=== PATIENT | male | born 1995 | race Caucasian/White ===

== ENCOUNTER 2020-09-02 15:22 | Emergency (ER) | payer BC, OTHER ==
[~2020-09-02] VITALS: Ht 188 cm; Wt 116.0 kg
[2020-09-02] MEDS ORDERED: LIDOCAINE 2% VISCOUS 15 ML UDC PO ONE (16:00)
[2020-09-02] MEDS ORDERED: ANTACID SUSP 30 ML UDC (MYLANTA) PO ONE (16:00)
[2020-09-02] MEDS ORDERED: KETOROLAC 30 MG/ML VIAL IVP ONE (16:00)
--- NOTE | 2020-09-02 16:00 | ED Chest Pain ---
General Chief Complaint: Chest Pain Stated Complaint: CHEST PAIN;SOA Nursing Triage Note: PT STATES CHEST PAIN THAT STARTED WEDNESDAY NIGHT, NOT GOING AWAY, RT UPPER CHEST SHOULDER TO THROAT Nursing Sepsis Screen: No Definite Risk Source: patient Exam Limitations: no limitations History of Present Illness Date Seen by Provider: Sep 02, 2020 Time Seen by Provider: 15:57 Initial Comments To ER with chest pain and shortness of breath. This began Wednesday. This is the right upper chest and it actually began with his shoulder. Pain is worsened by movement and deep breathing. It's sharp in nature. Belching seems to help the pain. No nausea. A little shortness of breath. No fevers no cough. No history of this though he does have a history of open-heart surgery at the age of 3 (he is not sure why) Timing/Duration: 1-2 days Severity/Quality: sharp Radiation: no radiation Activities at Onset: none ASA po BUSINESS TRANSFORMATION MANAGER: No NTG SL BUSINESS TRANSFORMATION MANAGER: No Associated Symptoms: shortness of breath Allergies and Home Medications Allergies Coded Allergies: No Known Drug Allergies (Unverified , 09/02/20) Home Medications Naproxen 500 Mg Tablet, 500 MG PO BID Prescribed by: SHWETA HUMPHREYS on 09/02/20 8419 Patient Home Medication List Home Medication List Reviewed: Yes Review of Systems Review of Systems Constitutional: see HPI EENTM: No Symptoms Reported Respiratory: See HPI, Cough Cardiovascular: See HPI, Chest Pain Gastrointestinal: See HPI Genitourinary: No Symptoms Reported Musculoskeletal: no symptoms reported Skin: no symptoms reported Psychiatric/Neurological: No Symptoms Reported Endocrine: No Symptoms Reported Hematologic/Lymphatic: No Symptoms Reported Past Cvebkxk-Nojwld-Yfdrzp Hx Patient Social History Alcohol Use: Rarely Uses Alcohol Beverage of Choice: Beer Recreational Drug Use: No Smoking Status: Never a Smoker Recent Foreign Travel: No Contact w/Someone Who Travel: No Recent Infectious Disease Expo: No Recent Hopitalizations: No Physical Abuse: No Sexual Abuse: No Mistreated: No Fear: No Seasonal Allergies Seasonal Allergies: Yes Past Medical History Surgeries: Yes (HEART, "URINARY ISSUE" SURGERY) Respiratory: No Cardiac: Yes (HEART SURGERY WHEN YOUNG) Neurological: No Genitourinary: No Musculoskeletal: No Endocrine: No HEENT: No Cancer: No Psychosocial: No Integumentary: Yes ("MARRY VERSA COLOR") Physical Exam Vital Signs Vital Signs - First Documented 09/02/20 09/02/20 15:41 15:50 Temp 37.3 Pulse 112 Resp 20 B/P (MAP) 149/91 (110) Pulse Ox 98 O2 Delivery Room Air O2 Flow Rate 6.0 Capillary Refill : Less Than 3 Seconds Height, Weight, BMI Height: '" Weight: lbs. oz. kg; 32.00 BMI Method: General Appearance: No Apparent Distress, WD/WN, Obese, Other (alert oriented no distress very pleasant little tachycardic rate of 113 sinus. Blood pressure 120s over 80s. Oxygen 97% room air. Well-appearing. There is no right upper quadrant tenderness to palpation to suggest referred pain from gallbladder pathology. He just ate about 1 PM and food does not affect this pain.) Neck: Full Range of Motion, Normal Inspection Respiratory: Normal Breath Sounds, No Accessory Muscle Use, No Respiratory Distress Gastrointestinal: Non Tender, Soft Extremity: Normal Capillary Refill, Normal Inspection, Other (pain is in the right upper chest at the sternoclavicular junction) Neurologic/Psychiatric: Alert, Oriented x3 Skin: Normal Color, Warm/Dry Progress/Results/Core Measures Results/Orders Lab Results Laboratory Tests Test 09/02/20 15:45 09/02/20 15:55 09/02/20 17:18 Range/Units White Blood Count 16.4 H 4.3-11.0 10^3/uL Red Blood Count 4.96 4.30-5.52 10^6/uL Hemoglobin 14.7 13.3-17.7 g/dL Hematocrit 44 40-54 % Mean Corpuscular Volume 88 80-99 fL Mean Corpuscular Hemoglobin 30 25-34 pg Mean Corpuscular Hemoglobin Concent 34 32-36 g/dL Red Cell Distribution Width 12.2 10.0-14.5 % Platelet Count 200 130-400 10^3/uL Mean Platelet Volume 9.1 9.0-12.2 fL Immature Granulocyte % (Auto) 1 % Neutrophils (%) (Auto) 70 42-75 % Lymphocytes (%) (Auto) 17 12-44 % Monocytes (%) (Auto) 11 0-12 % Eosinophils (%) (Auto) 1 0-10 % Basophils (%) (Auto) 0 0-10 % Neutrophils # (Auto) 11.5 H 1.8-7.8 10^3/uL Lymphocytes # (Auto) 2.8 1.0-4.0 10^3/uL Monocytes # (Auto) 1.8 H 0.0-1.0 10^3/uL Eosinophils # (Auto) 0.2 0.0-0.3 10^3/uL Basophils # (Auto) 0.0 0.0-0.1 10^3/uL Immature Granulocyte # (Auto) 0.1 0.0-0.1 10^3/uL Neutrophils % (Manual) 66 % Lymphocytes % (Manual) 12 % Monocytes % (Manual) 9 % Eosinophils % (Manual) 5 % Basophils % (Manual) 0 % Band Neutrophils 0 % Reactive Lymphocytes 8 % Blood Morphology Comment NORMAL D-Dimer < 0.27 0.00-0.49 UG/ML Sodium Level 140 135-145 MMOL/L Potassium Level 3.7 3.6-5.0 MMOL/L Chloride Level 104 98-107 MMOL/L Carbon Dioxide Level 25 21-32 MMOL/L Anion Gap 11 5-14 MMOL/L Blood Urea Nitrogen 12 7-18 MG/DL Creatinine 0.98 0.60-1.30 MG/DL Estimat Glomerular Filtration Rate > 60 BUN/Creatinine Ratio 12 Glucose Level 90 70-105 MG/DL Calcium Level 9.2 8.5-10.1 MG/DL Corrected Calcium 8.9 8.5-10.1 MG/DL Total Bilirubin 0.6 0.1-1.0 MG/DL Aspartate Amino Transf (AST/SGOT) 26 5-34 U/L Alanine Aminotransferase (ALT/SGPT) 39 0-55 U/L Alkaline Phosphatase 74 40-136 U/L Troponin I < 0.028 <0.028 NG/ML C-Reactive Protein High Sensitivity 1.26 H 0.00-0.50 MG/DL Total Protein 7.8 6.4-8.2 GM/DL Albumin 4.4 3.2-4.5 GM/DL Procalcitonin 0.02 <0.10 NG/ML Urine Color YELLOW Urine Clarity CLEAR Urine pH 7.0 5-9 Urine Specific [place] 1.010 L 1.016-1.022 Urine Protein NEGATIVE NEGATIVE Urine Glucose (UA) NEGATIVE NEGATIVE Urine Ketones NEGATIVE NEGATIVE Urine Nitrite NEGATIVE NEGATIVE Urine Bilirubin NEGATIVE NEGATIVE Urine Urobilinogen 0.2 < = 1.0 MG/DL Urine Leukocyte Esterase NEGATIVE NEGATIVE Urine RBC (Auto) NEGATIVE NEGATIVE Urine RBC NONE /HPF Urine WBC NONE /HPF Urine Squamous Epithelial Cells RARE /HPF Urine Crystals NONE /LPF Urine Bacteria NEGATIVE /HPF Urine Casts NONE /LPF Urine Mucus NEGATIVE /LPF Urine Culture Indicated NO My Orders Orders - SHWETA HUMPHREYS APRN Hs C Reactive Protein (09/02/20 15:50) Fibrin Degradation Products (09/02/20 15:50) Troponin I (09/02/20 15:50) Ekg Tracing (09/02/20 15:50) Cbc With Automated Diff (09/02/20 15:50) Comprehensive Metabolic Panel (09/02/20 15:50) Chest 1 View, Ap/Pa Only (09/02/20 15:50) Coronavirus Sars-Cov-2 So 2018 (09/02/20 15:50) Ketorolac Injection (Toradol Injection) (09/02/20 16:00) Antacid Suspension (Mylanta Suspension (09/02/20 16:00) Lidocaine 2% Viscous 15 Ml (Xylocaine Vi (09/02/20 16:00) Manual Differential (09/02/20 15:45) Ct Chest W (09/02/20 16:51) Procalcitonin (Pct) (09/02/20 16:53) Iohexol Injection (Omnipaque 350 Mg/Ml 1 (09/02/20 17:00) Received Contrast (Hold Metformin- Contr (09/02/20 17:00) Ns (Ivpb) (Sodium Chloride 0.9% Ivpb Bag (09/02/20 17:00) Ua Culture If Indicated (09/02/20 17:20) Medications Given in ED Current Medications Medications Dose Ordered Sig/Candice Route Start Time Stop Time Status Last Admin Dose Admin Al Hydrox/Mg Hydrox/Simethicone 30 ml ONCE ONCE PO 09/02/20 16:00 09/02/20 16:01 DC 09/02/20 16:59 30 ML Iohexol 75 ml ONCE ONCE IV 09/02/20 17:00 09/02/20 17:01 DC 09/02/20 17:26 75 ML Ketorolac Tromethamine 15 mg ONCE ONCE IVP 09/02/20 16:00 09/02/20 16:01 DC 09/02/20 16:59 15 MG Lidocaine HCl 10 ml ONCE ONCE PO 09/02/20 16:00 09/02/20 16:01 DC 09/02/20 16:59 10 ML Sodium Chloride 100 ml ONCE ONCE IV 09/02/20 17:00 09/02/20 17:01 DC 09/02/20 17:27 100 ML Vital Signs/I&O 09/02/20 09/02/20 09/02/20 09/02/20 15:41 15:50 16:59 18:03 Temp 37.3 37.3 37.3 Pulse 112 107 Resp 20 20 B/P (MAP) 149/91 (110) 135/80 (110) Pulse Ox 98 98 O2 Delivery Room Air OxyMask Room Air O2 Flow Rate 6.0 Blood Pressure Mean: 110 Departure Impression Primary Impression: Chest wall pain Additional Impression: Leukocytosis Disposition: HOME, SELF-CARE Condition: Improved Departure-Patient Inst. Decision time for Depature: 17:18 Referrals: YAIMA MORAN MD (PCP/Family) Primary Care Physician Patient Instructions: Chest Pain Add. Discharge Instructions: 1. Antibiotics and anti-inflammatories as directed. Return to ER for any concerns 2. Follow-up with your doctor later this week for recheck. All discharge instructions reviewed with patient and/or family. Voiced understanding. Scripts Naproxen (Naprosyn) 500 Mg Tablet 500 MG PO BID, #30 TAB 0 Refills Prov: SHWETA HUMPHREYS APRN 09/02/20 Images Torso/Trunk 1 - SHWETA HUMPHREYS APRN Sep 02, 2020 16:00
[2020-09-02 16:03] LABS: BASOPHILS % (AUTO) 0 % (0-10); EOSINOPHILS # (AUTO) 0.2 10^3/uL (0.0-0.3); EOSINOPHILS % (AUTO) 1 % (0-10); HEMATOCRIT 44 % (40-54); HEMOGLOBIN 14.7 g/dL (13.3-17.7); LYMPHOCYTES # (AUTO) 2.8 10^3/uL (1.0-4.0); LYMPHOCYTES % (AUTO) 17 % (12-44); MEAN CORPUSCULAR HEMOGLOBIN 30 pg (25-34); MEAN CORPUSCULAR HGB CONC 34 g/dL (32-36); MEAN CORPUSCULAR VOLUME 88 fL (80-99); MEAN PLATELET VOLUME 9.1 fL (9.0-12.2); MONOCYTES # (AUTO) 1.8 10^3/uL (0.0-1.0); MONOCYTES % (AUTO) 11 % (0-12); NEUTROPHILS # (AUTO) 11.5 10^3/uL (1.8-7.8); NEUTROPHILS % (AUTO) 70 % (42-75); PLATELET COUNT 200 10^3/uL (130-400); WHITE BLOOD COUNT 16.4 10^3/uL (4.3-11.0)
[2020-09-02 16:14] LABS: ALBUMIN 4.4 GM/DL (3.2-4.5); CHLORIDE 104 MMOL/L (98-107); POTASSIUM 3.7 MMOL/L (3.6-5.0); SODIUM 140 MMOL/L (135-145)
[2020-09-02 16:15] LABS: CALCIUM 9.2 MG/DL (8.5-10.1)
[2020-09-02 16:16] LABS: GLUCOSE 90 MG/DL (70-105); TOTAL PROTEIN 7.8 GM/DL (6.4-8.2)
[2020-09-02 16:17] LABS: CARBON DIOXIDE 25 MMOL/L (21-32)
[2020-09-02 16:18] LABS: BILIRUBIN,TOTAL 0.6 MG/DL (0.1-1.0)
[2020-09-02 16:20] LABS: ALKALINE PHOSPHATASE 74 U/L (40-136); CREATININE SERUM 0.98 MG/DL (0.60-1.30); GFR ESTIMATED > 60
[2020-09-02 16:21] LABS: BUN/CREATININE RATIO 12
[2020-09-02 16:23] LABS: ALANINE AMINOTRANSFERASE 39 U/L (0-55)
[2020-09-02 16:25] LABS: BAND NEUTROPHILS 0 %; BASOPHILS % (MANUAL) 0 %; EOSINOPHILS % (MANUAL) 5 %; LYMPHOCYTES % (MANUAL) 12 %; MONOCYTES % (MANUAL) 9 %; NEUTROPHILS % (MANUAL) 66 %; RBC MORPH NORMAL; REACTIVE LYMPHOCYTES 8 %
--- NOTE | 2020-09-02 16:51 | Diagnostic Imaging Report ---
EXAMINATION: Chest 1 view HISTORY: right chest pain COMPARISON: None available. FINDINGS: Heart size and pulmonary vasculature are normal. The lungs are clear without consolidation, pleural effusion, or pneumothorax. The osseous structures are intact. IMPRESSION: 1. No acute radiographic abnormality in the chest. Dictated by: Dictated on workstation # [id number]
[2020-09-02] MEDS ORDERED: NS 100 ML (IVPB) BAG IV ONE (17:00)
[2020-09-02] MEDS ORDERED: HOLD METFORMIN - RECEIVED CONTRAST 20 ML VIAL IV SCH (17:00)
[2020-09-02] MEDS ORDERED: IOHEXOL 350 MG/ML 100 ML (OMNIPAQUE 350) VIAL IV ONE (17:00)
[2020-09-02] MEDS ORDERED: NAPR-1071 PO (17:19)
[2020-09-02] MEDS ORDERED: CEFU500T63 PO (17:19)
[2020-09-02 17:32] LABS: BILIRUBIN,URINE NEGATIVE (NEGATIVE); CLARITY,URINE CLEAR; COLOR,URINE YELLOW; GLUCOSE, URINE (UA) NEGATIVE (NEGATIVE); KETONES,URINE NEGATIVE (NEGATIVE); LEUKOCYTE ESTERASE ,URINE NEGATIVE (NEGATIVE); NITRITE,URINE NEGATIVE (NEGATIVE); PROTEIN,URINE NEGATIVE (NEGATIVE)
[2020-09-02 17:42] LABS: BACTERIA,URINE NEGATIVE /HPF; SQUAMOUS EPITHELIAL CELL,UR RARE /HPF
--- NOTE | 2020-09-02 17:43 | Diagnostic Imaging Report ---
PROCEDURE: CT chest with contrast only. TECHNIQUE: Multiple contiguous axial images were obtained through the chest after administration of intravenous contrast. Auto Exposure Controls were utilized during the CT exam to meet ALARA standards for radiation dose reduction. INDICATION: Right-sided chest pain, leukocytosis, shortness of air. COMPARISON STUDY: Plain film of the chest from today. FINDINGS: Post contrast CT scanning of the chest demonstrates the lungs to be clear. No arteriosclerotic disease is present. The vascular structures appear normal. Heart size is normal. There are no pleural or pericardial effusions. The visualized portions of the abdomen are normal. There is no abnormal adenopathy. The osseous structures are normal. IMPRESSION: Normal CT scan of the chest with contrast. Dictated by: Dictated on workstation # [id number]
[2020-09-02 18:03] VITALS: BP 135/80
== END 2020-09-02 18:03 | disposition home or self-care (01) ==
LOC: EDUNIT# 15:22 → ER 15:23
DX: R07.89 Other chest pain (principal); D72.829 Elevated white blood cell count, unspecified; E66.9 Obesity, unspecified; Z20.828 Contact with and (suspected) exposure to other viral communicable diseases; Z68.32 Body mass index [BMI] 32.0-32.9, adult
CPT/HCPCS: 71045; 71260; 80053; 81000; 84145; 84484; 85007; 85027; 85379; 86141; 93005; 99283; U0002; 36415; 87635